=== PATIENT | male | born 1990 | race Hispanic/Latino ===

== ENCOUNTER 2024-09-17 12:44 | Emergency (ER) | payer SELFPAY ==
[2024-09-17] MEDS ORDERED: Boostrix 0.5 ML (Tdap) VIAL (>/=7 yrs of age) ONE (13:45)
== END 2024-09-17 14:36 | disposition home or self-care (01) ==
LOC: ERS 12:44
DX: S91.331A Puncture wound without foreign body, right foot, initial encounter (principal); Z23 Encounter for immunization; W45.0XXA Nail entering through skin, initial encounter; Y93.89 Activity, other specified; Y92.69 Other specified industrial and construction area as the place of occurrence of the external cause
CPT/HCPCS: 90471; 90715